=== PATIENT | male | born 1955 | race Caucasian/White ===

== ENCOUNTER 2020-12-22 11:45 | Emergency (ER) | payer MEDICARE ==
[2020-12-22 13:21] LABS: BASOPHIL 0.8 % (0-2); EOSINOPHIL 1.3 % (0-7); HCT 49.5 % (42.0-52.0); HGB 16.4 g/dl (13.2-18.0); LYMPHOCYTE 20.1 % (15-48); MCH 30.9 pg (25.0-31.0); MCHC 33.1 g/dL (32.0-36.0); MCV 93.4 fL (78.0-100.0); MONOCYTE 8.8 % (0-12); MPV 10.4 fL (6.0-9.5); NEUTROPHIL 68.2 % (41-80); NRBC 0; PLT 167 K/uL (150-400); RDW 13.7 % (11.5-14.0); WBC 9.2 K/uL (4.0-10.5)
[2020-12-22 14:32] LABS: ALBUMIN 3.3 g/dL (3.4-5.0); BILIRUBIN - TOTAL 0.4 mg/dL (0.2-1.0); CREATININE 0.97 mg/dL (0.67-1.17); GLOBULIN (CALCULATION) 3.8 g/dL; POTASSIUM 4.7 mmol/L (3.5-5.1); TOTAL PROTEIN 7.1 g/dL (6.4-8.2)
== END 2020-12-22 15:38 | disposition home or self-care (01) ==
LOC: FER 11:45
PROVIDERS: Emergency Medicine
DX: S09.90XA Unspecified injury of head, initial encounter (principal); S01.01XA Laceration without foreign body of scalp, initial encounter; Z86.73 Personal history of transient ischemic attack (TIA), and cerebral infarction without residual deficits; Z88.0 Allergy status to penicillin; Z88.5 Allergy status to narcotic agent; W19.XXXA Unspecified fall, initial encounter; Y92.512 Supermarket, store or market as the place of occurrence of the external cause
CPT/HCPCS: 36415; 70450; 72125; 80053; 85025; 96374; J2060

== ENCOUNTER 2021-09-29 18:31 | Emergency (ER) | payer MEDICARE ==
[2021-09-29 19:25] LABS: EOSINOPHIL 1.2 % (0-7); HCT 42.7 % (42.0-52.0); LYMPHOCYTE 35.5 % (15-48); MCH 32.8 pg (25.0-31.0); MCHC 35.1 g/dL (32.0-36.0); MCV 93.2 fL (78.0-100.0); MONOCYTE 13.5 % (0-12); MPV 10.5 fL (6.0-9.5); NEUTROPHIL 48.4 % (41-80); NRBC 0; PLT 161 K/uL (150-400); RBC 4.58 M/uL (4.70-6.00); RDW 11.9 % (11.5-14.0)
[2021-09-29 19:38] LABS: ALBUMIN 3.7 g/dL (3.4-5.0); BILIRUBIN - TOTAL 0.2 mg/dL (0.2-1.0); BUN/CREAT RATIO (CALC) 22.2 RATIO; CREATININE 0.9 mg/dL (0.67-1.17); GLOBULIN (CALCULATION) 3.5 g/dL; POTASSIUM 4.2 mmol/L (3.5-5.1); TOTAL PROTEIN 7.2 g/dL (6.4-8.2)
== END 2021-09-29 21:58 | disposition home or self-care (01) ==
LOC: FER 18:31
PROVIDERS: Emergency Medicine Emergency Medical Services
DX: R56.9 Unspecified convulsions (principal); I48.92 Unspecified atrial flutter
CPT/HCPCS: 36415; 70450; 71045; 80053; 83735; 84484; 85025; 85379; 93005; J1953; J7030